=== PATIENT | male | born 1940 | race Caucasian/White ===

== ENCOUNTER 2022-06-21 07:06 | Day surgery (SDC) | payer OTHER ==
[~2022-06-21 07:06] MED LIST: ASPI81EC; BP MEDICATION; METO25ER; XARELTO1 MG/1 ML
[2022-06-21] MEDS ORDERED: QUIN10 PO (07:20)
[2022-06-21] MEDS ORDERED: DYAZIDE 37.5-21 EACH PO (07:21)
[2022-06-21] MEDS ORDERED: VITAMIN D325 MC3 PO (07:22)
[2022-06-21] MEDS ORDERED: ALBU2.5V5 INH (07:22)
[2022-06-21] MEDS ORDERED: FERROUS SULFAT325 M3 PO (07:26)
[2022-06-21] MEDS ORDERED: SILD25T PO (07:26)
[2022-06-21] MEDS ORDERED: AEROECLIPSE II1 EACH MC (07:27)
[2022-06-21] MEDS ORDERED: OMEP20ER PO (07:27)
== END 2022-06-21 09:08 | disposition home or self-care (01) ==
DX: H25.12 Age-related nuclear cataract, left eye (principal); I48.0 Paroxysmal atrial fibrillation; Z79.01 Long term (current) use of anticoagulants; J44.9 Chronic obstructive pulmonary disease, unspecified; K21.9 Gastro-esophageal reflux disease without esophagitis; I10 Essential (primary) hypertension; Z79.899 Other long term (current) drug therapy; Z85.46 Personal history of malignant neoplasm of prostate

== ENCOUNTER → 2023-06-20 | Outpatient (CLI) | payer OTHER ==
[~2023-06-20] MED LIST changes: +AEROECLIPSE II1 EACH MC; +ALBU2.5V5 INH; +DYAZIDE 37.5-21 EACH PO; +FERROUS SULFAT325 M3 PO; +OMEP20ER PO; +QUIN10 PO; +SILD25T PO; +VITAMIN D325 MC3 PO
== END ==
LOC: LAB 08:36 → LAB SHORT 08:36
DX: J44.1 Chronic obstructive pulmonary disease with (acute) exacerbation (principal); R04.2 Hemoptysis
CPT/HCPCS: 87070; 87077; 87186; 87205

== ENCOUNTER 2024-11-15 09:19 | Emergency (ER) | payer OTHER ==
[~2024-11-15] VITALS: Ht 167.6 cm; Wt 72.6 kg
[2024-11-15] MEDS ORDERED: Ipratropium/Albuterol SulF 2.5-0.5MG/3 ML Amp INH ONE (09:55)
[2024-11-15] MEDS ORDERED: MethylPREDNISolone Sod Succ 125 MG Vial IV ONE (09:55)
[2024-11-15 10:02] LABS: BASOPHILS ABSOLUTE AUTO 0.08 K/mm3 (0.00-0.23); BASOPHILS PERCENT AUTO 1 % (0-2); EOSINOPHILS PERCENT AUTO 1 % (0-6); Hematocrit 40.4 % (37.0-53.0); Hemoglobin 13.9 g/dL (13.5-17.5); IMMATURE GRAN ABSOLUTE AUTO 0.06 K/mm3 (0.00-0.10); IMMATURE GRAN PERCENT AUTO 1 % (0-1); LYMPHOCYTES ABSOLUTE AUTO 1.47 K/mm3 (0.84-5.20); LYMPHOCYTES PERCENT AUTO 11 % (21-46); MONOCYTES ABSOLUTE AUTO 1.51 K/mm3 (0.16-1.47); MONOCYTES PERCENT AUTO 11 % (4-13); Mean Corpuscular HGB 34.8 pg (26.0-34.0); Mean Corpuscular HGB Conc 34.4 g/dL (31.5-36.5); Mean Corpuscular Volume 101 fL (80-100); Mean Platelet Volume 10.5 fL (9.1-12.4); NEUTROPHILS ABSOLUTE AUTO 10.06 K/mm3 (1.96-9.15); NEUTROPHILS PERCENT AUTO 76 % (41-73); Platelet Count 138 K/mm3 (150-400); RDW Coefficient Variation 13.3 % (11.7-14.2); RDW Standard Deviation 49.9 fL (35.1-46.3); White Blood Cell Count 13.28 K/mm3 (4.00-11.30)
[2024-11-15 10:15] LABS: Albumin, Blood 3.2 g/dL (3.4-5.0); Albumin/Globulin Ratio 0.8 (0.8-1.8); Bun/Creatinine Ratio 23.4 (12.0-20.0); Calcium, Blood 9.4 mg/dL (8.5-10.1); Creatinine, Blood 0.73 mg/dL (0.60-1.20); Globulin, Blood 3.9 g/dL (2.2-4.0); Total Protein, Blood 7.1 g/dL (6.4-8.2)
[2024-11-15 10:39] LABS: Influenza A, PCR NEGATIVE (NEGATIVE); Influenza B, PCR NEGATIVE (NEGATIVE); Resp Syncytial Virus, PCR NEGATIVE (NEGATIVE); SARS-Cov-2 (COVID-19) PCR, MMC NEGATIVE (NEGATIVE)
[2024-11-15 14:10] VITALS: BP 141/93
== END 2024-11-15 14:17 | disposition home or self-care (01) ==
LOC: ER 09:19
PROVIDERS: Student in an Organized Health Care Education/Training Program
DX: R06.02 Shortness of breath (principal); R78.89 Finding of other specified substances, not normally found in blood; Z79.1 Long term (current) use of non-steroidal anti-inflammatories (NSAID); Z79.899 Other long term (current) drug therapy; I48.91 Unspecified atrial fibrillation; K21.9 Gastro-esophageal reflux disease without esophagitis; J44.9 Chronic obstructive pulmonary disease, unspecified; Z87.891 Personal history of nicotine dependence
CPT/HCPCS: 0241U; 71046; 80053; 83880; 84484; 85025; 93005; 93010; 94640; 94664; 96374; 99285-25; J2919

== ENCOUNTER → 2025-05-01 | Outpatient (CLI) | payer OTHER | END | disposition home or self-care (01) | LOC: LAB 14:22 → LAB SHORT 14:22 | DX: R05.9 Cough, unspecified (principal) | CPT/HCPCS: 87070; 87077; 87186; 87205 ==